=== PATIENT | female | born 1960 | race Caucasian/White ===

== ENCOUNTER → 2018-02-12 13:53 | Emergency (ER) | payer SELFPAY ==
[~2018-02-12 13:53] MED LIST: Ketorolac INJ* 30 MG/ML 1 ML VIAL IV PUSH ONE; NS 0.9% 1000 ML* 1,000 ML IV ONE; Ondansetron TAB* 4 MG PO ONE
[2018-02-12 14:50] LABS: ABS Basophils 0 10^3/ul (0-0.2); ABS Eosinophils 0.1 10^3/ul (0-0.6); ABS Lymphocytes 1.3 10^3/ul (1.0-4.8); ABS Monocytes 0.4 10^3/ul (0-0.8); ABS Neutrophils 5.5 10^3/ul (1.5-7.7); ABS Nucleated RBC 0 10^3/ul; Eosinophil % 1.6 % (0-6); Hematocrit 38 % (35-47); Hemoglobin 13.1 g/dl (12.0-16.0); Lymphocyte % 17.3 % (25-47); Mean Corpuscular HGB Conc 34 g/dl (31-36); Mean Corpuscular Hemoglobin 32 pg (27-31); Mean Corpuscular Volume 94 fL (80-97); Nucleated Red Blood Cells % 0; Platelet Count 217 10^3/ul (150-450); Red Blood Count 4.09 10^6/ul (4.00-5.40); Red Cell Distribution Width 12 % (10.5-15); White Blood Count 7.2 10^3/ul (3.5-10.8)
[2018-02-12 15:10] LABS: EGFR Non-African American 60.1 (>60)
--- NOTE | 2018-02-12 15:26 | RAD ---
INDICATION: Near syncope. COMPARISON: There are no prior studies available for comparison. TECHNIQUE: A portable view of the chest was obtained. FINDINGS: Cardiac and mediastinal contours appear to be within normal limits. The lungs are underinflated. There is mild atelectasis at the left lung base. No pleural effusion is seen. IMPRESSION: NO EVIDENCE FOR ACUTE DISEASE.
--- NOTE | 2018-02-12 15:44 | RAD ---
INDICATION: Back pain, injury. COMPARISON: There are no prior studies available for comparison. TECHNIQUE: Contiguous axial sections were obtained beginning above the T12 vertebra and continuing through the L5-S1 disc space. Images were reconstructed in the sagittal and coronal planes. FINDINGS: There is a mild lumbar scoliosis convex toward the left side. The vertebra are otherwise in normal alignment. No fracture is seen. At the L1-L2 level there is no evidence for spinal canal or neural foraminal narrowing. At the L2-L3 level there is a mild broad-based disc bulge and mild hypertrophic changes within the facet joints. No spinal canal narrowing is present. There is mild bilateral neural foraminal narrowing. At the L3-L4 level there is a mild broad-based disc bulge and mild hypertrophic changes within the facet joint. There is mild spinal canal narrowing and mild bilateral neural foraminal narrowing. At the L4-L5 level there is a [id number] broad-based disc bulge and moderate hypertrophic changes within the facet joints. There is mild to moderate spinal canal narrowing and mild to moderate bilateral neural foraminal narrowing. At the L5-S1 level there is a mild broad-based disc bulge. No significant spinal canal narrowing is present. There is mild bilateral neural foraminal narrowing. There are moderate hypertrophic changes within the facet joints. There is a 5 mm nonobstructing left renal calculus. IMPRESSION: 1. NO EVIDENCE FOR FRACTURE OR SUBLUXATION. 2. MILD TO MODERATE DEGENERATIVE DISC DISEASE AND FACET OSTEOARTHRITIS. 3. SMALL NONOBSTRUCTING LEFT RENAL CALCULUS.
[2018-02-12 16:38] LABS: Urine Appearance Cloudy; Urine Blood Negative (Negative); Urine Color Yellow; Urine Ketones Negative (Negative); Urine Protein Negative (Negative); Urine Red Blood Cell Absent (Absent); Urine Specific Gravity 1.016 (1.010-1.030); Urine Urobilinogen Negative (Negative); Urine White Blood Cell 1+(6-10/hpf) (Absent)
--- NOTE | 2018-02-12 17:01 | ED ---
Complex/Multi-Sys Presentation - HPI Summary HPI Summary: Pt. is a 57 y.o female who presents to the ER for low back pain and N/V. Pt. states she has a hx of low back and has been doing more lifting and physical activity recently. Pt. states that she has had increased low back over the last several days. Pain radiates down right leg. She denies numbness, tingling or weakness in all 4 extremities. Pt. states she was at work this morning when she started feeling faint and vomited twice. Also c/o a headache located around her left eye. Denies associated symptoms of fever, diarrhea, urinary symptoms, bowel or bladder incontincence or retention. She denies CP or SOB. Does not increased sinus pain and pressure. Pt.'s states that he had a GI bug yesterday with vomiting and diarrhea. Symptoms are moderate in severity. No current modifying factors. - History Of Current Complaint Chief Complaint: EDBackInjuryPain Time Seen by Provider: 02/12/18 13:57 Hx Obtained From: Patient, Family/Blending Technician PMH/Surg Hx/FS Hx/Imm Hx Previously Healthy: Yes Infectious Disease History: No Infectious Disease History: Denies: Traveled Outside the [place] in Last 30 Days - Social History Occupation: Employed Full-time Lives: With Family Alcohol Use: Occasionally Substance Use Type: Reports: None Smoking Status (MU): Never Smoked Tobacco Review of Systems Positive: Chills. Negative: Fever Eyes: Negative ENT: Negative Cardiovascular: Negative Respiratory: Negative Positive: Vomiting, Nausea. Negative: Diarrhea Genitourinary: Negative Negative: burning, dysuria, flank pain Positive: Other - Low back pain Positive: Headache. Negative: Weakness, Paresthesia, Numbness, Syncope, Slurred Speech Positive: Anxious All Other Systems Reviewed And Are Negative: Yes Physical Exam Triage Information Reviewed: Yes Vital Signs On Initial Exam: Initial Vitals Temp Pulse Resp BP Pulse Ox 98.0 F 66 24 155/104 95 02/12/18 13:56 02/12/18 13:56 02/12/18 13:56 02/12/18 13:56 02/12/18 13:56 Vital Signs Reviewed: Yes Appearance: Positive: Pain Distress - Pt. lying in bed, appears uncomfortable but nontoxic. Family present. Skin: Positive: Warm, Dry Head/Face: Positive: Normal Head/Face Inspection Eyes: Positive: Normal Neck: Positive: Supple Respiratory/Lung Sounds: Positive: Clear to Auscultation, Breath Sounds Present Cardiovascular: Positive: Normal, RRR Abdomen Description: Positive: Nontender, Soft, CVA Tenderness (R) - Minimal tenderness Musculoskeletal: Positive: Other - Low lumbar midline tenderness and pain over left SI joint. 5/5 strength in bilateral LEs. Neurological: Positive: Normal, CN Intact II-III Psychiatric: Positive: Affect/Mood Appropriate Diagnostics - Vital Signs Vital Signs Temp Pulse Resp BP Pulse Ox 02/12/18 16:02 21 139/91 02/12/18 16:00 14 02/12/18 15:32 20 136/88 02/12/18 15:02 15 136/94 02/12/18 15:00 16 02/12/18 14:39 20 147/91 02/12/18 14:32 22 135/91 02/12/18 14:03 24 02/12/18 14:02 17 155/104 02/12/18 13:56 98.0 F 66 24 155/104 95 - Laboratory Lab Results: Lab Results 02/12/18 02/12/18 02/12/18 Range/Units 14:40 14:40 16:09 WBC 7.2 (3.5-10.8) 10^3/ul RBC 4.09 (4.00-5.40) 10^6/ul Hgb 13.1 (12.0-16.0) g/dl Hct 38 (35-47) % MCV 94 (80-97) fL MCH 32 H (27-31) pg MCHC 34 (31-36) g/dl RDW 12 (10.5-15) % Plt Count 217 (150-450) 10^3/ul MPV 7.0 L (7.4-10.4) um3 Neut % (Auto) 75.3 (38-83) % Lymph % (Auto) 17.3 L (25-47) % Arthur % (Auto) 5.4 (0-7) % Eos % (Auto) 1.6 (0-6) % Baso % (Auto) 0.4 (0-2) % Absolute Neuts (auto) 5.5 (1.5-7.7) 10^3/ul Absolute Lymphs (auto) 1.3 (1.0-4.8) 10^3/ul Absolute Monos (auto) 0.4 (0-0.8) 10^3/ul Absolute Eos (auto) 0.1 (0-0.6) 10^3/ul Absolute Basos (auto) 0 (0-0.2) 10^3/ul Absolute Nucleated RBC 0 10^3/ul Nucleated RBC % 0 Sodium 141 (135-145) mmol/L Potassium 3.8 (3.5-5.0) mmol/L Chloride 107 (101-111) mmol/L Carbon Dioxide 29 (22-32) mmol/L Anion Gap 5 (2-11) mmol/L BUN 19 (6-24) mg/dL Creatinine 0.96 H (0.51-0.95) mg/dL Est GFR ( Amer) 72.7 (>60) Est GFR (Non-Af Amer) 60.1 (>60) BUN/Creatinine Ratio 19.8 (8-20) Glucose 100 (70-100) mg/dL Calcium 9.2 (8.6-10.3) mg/dL Total Bilirubin 0.40 (0.2-1.0) mg/dL AST 19 (13-39) U/L ALT 15 (7-52) U/L Alkaline Phosphatase 47 (34-104) U/L Troponin I 0.00 (<0.04) ng/mL Total Protein 6.3 L (6.4-8.9) g/dL Albumin 3.9 (3.2-5.2) g/dL Globulin 2.4 (2-4) g/dL Albumin/Globulin Ratio 1.6 (1-3) TSH 3.98 (0.34-5.60) mcIU/mL Urine Color Yellow Urine Appearance Cloudy Urine pH 7.0 (5-9) Ur Specific [place] 1.016 (1.010-1.030) Urine Protein Negative (Negative) Urine Ketones Negative (Negative) Urine Blood Negative (Negative) Urine Nitrate Negative (Negative) Urine Bilirubin Negative (Negative) Urine Urobilinogen Negative (Negative) Ur Leukocyte Esterase 1+ A (Negative) Urine WBC (Auto) 1+(6-10/hpf) A (Absent) Urine RBC (Auto) Absent (Absent) Ur Squamous Epith Cells Present A (Absent) Amorphous Crystals Present A (Absent) Urine Bacteria Absent (Absent) Urine Glucose Negative (Negative) Result Diagrams: 02/12/18 14:40 02/12/18 14:40 Lab Statement: Any lab studies that have been ordered have been reviewed, and results considered in the medical decision making process. Complex Multi-Symp Course/Dx Course Of Treatment: Pt. presenting with the above symptoms. She is afebrile. BP elevated. IV placed and labs drawn. Toradol, fluids and zofran ordered. ECG done at 1417 shows a sinus rhythm of 70bpm, normal axis, no ST elevation or depression. CXR negative for acute findings, reading per radiology. Pt.'s pain is improving. Pt. and family are concerned she needs a CT scan of her back to evaluate for disc herniation. CT scan ordered. Pt. has no symptoms of cauda equina syndrome. Labs are unremarkable. U/A is contaminated with epi cells but shows elevated WBCs, will send for culture. CT scan: Reading per radiology: IMPRESSION: 1. NO EVIDENCE FOR FRACTURE OR SUBLUXATION. 2. MILD TO MODERATE DEGENERATIVE DISC DISEASE AND FACET OSTEOARTHRITIS. 3. SMALL NONOBSTRUCTING LEFT RENAL CALCULUS. On re-exam pt. is rest more comfortably and states her pain has greatly improved. She was able to ambulate to restroom without difficulty. Suspect she also has a viral gastroenteritis as well. Zofran rx. Will rx a short course of lortab and steroids. Pt. to call PCP on Thursday for a close f.u apt. To return to ER if symptoms change or worsen. Pt. and family understand and agree with plan. BP has improved. - Diagnoses Differential Diagnoses/HQI/PQRI: Sepsis, Urinary Tract Infection Provider Diagnoses: DDD (degenerative disc disease), Lumbar disc herniation, Gastroenteritis Discharge - Sign-Out/Discharge Documenting (check all that apply): Patient Departure - Discharge Plan Condition: Good Disposition: HOME Prescriptions: Hydrocodone/Acetaminophen [Hydrocodone-Acetamin 5-325 mg] 1 each PO Q6H #12 tablet MDD 4tablets methylPREDNISolone [Medrol Dosepak 4 MG*] 0 mg PO .SEE MATEUSZ INSTRUCTION #1 tab Ondansetron HCl [Zofran] 4 mg PO Q6H #12 tablet Patient Education Materials: Lumbar Disc Herniation (ED), Gastroenteritis (ED) , Lumbar Spinal Stenosis (ED) Forms: *Work Release Referrals: Vivi ORTIZ,Raza Ritchie [Primary Care Provider] - Thomas Gunn MD [Medical Doctor] - Additional Instructions: Schedule a follow up with PCP or neurosurgery Medication as directed Apply warm compresses to back Clear liquid diet x 24 hours Return to ER if symptoms change or worsen - Billing Disposition and Condition Condition: GOOD Disposition: Home
[2018-02-12 17:05] VITALS: BP 128/85
== END | disposition home or self-care (01) ==
LOC: ED 13:53
DX: M51.36 Other intervertebral disc degeneration, lumbar region (principal); M51.26 Other intervertebral disc displacement, lumbar region; K52.9 Noninfective gastroenteritis and colitis, unspecified; N20.0 Calculus of kidney; R51 Headache; R11.2 Nausea with vomiting, unspecified; R42 Dizziness and giddiness
CPT/HCPCS: 36415; 71045; 72131; 80053; 81003; 81015; 84443; 84484; 85025; 87086; 93005; 96374; 99283; A9270-GY; J1885